=== PATIENT | male | born 1950 | race Native Hawaiian/Other Pacific Islander ===

== ENCOUNTER 2018-04-29 14:52 | Outpatient (CLI) | payer MEDICARE | END 2018-04-29 14:53 | disposition home or self-care (01) | LOC: C.RADIC 14:52 ==

== ENCOUNTER 2018-05-06 05:49 | Inpatient (IN) | payer MEDICARE ==
[2018-05-06] MEDS ORDERED: Tranexamic Acid 1,000 MG in Sodium Chloride 0.9% 50 ML IV ONE (07:30)
[2018-05-06] MEDS ORDERED: Bupivacaine Liposomal Inj 20 ml INFIL ONE (07:30)
[2018-05-06] MEDS ORDERED: Propofol 10 mg/ml Inj (20 ML) ONE (07:45)
[2018-05-06] MEDS ORDERED: Succinylcholine Chloride 20 mg/ml Syr (5 ml) IV ONE (07:57)
[2018-05-06] MEDS ORDERED: Phenylephrine 10 mg/ml Inj ONE (07:57)
[2018-05-06] MEDS ORDERED: Rocuronium 10 mg/ml (5 ml) ONE (07:57)
[2018-05-06] MEDS ORDERED: Sodium Chloride 0.9% 60 ML IV ONE (08:08)
[2018-05-06] MEDS ORDERED: ceFAZolin 1 gm in NS 2 GM/200 ML BAG IVPB ONE (08:08)
[2018-05-06] MEDS ORDERED: Bacitracin Ointment 30 GM TUBE ONE (08:11)
[2018-05-06] MEDS: Bacitracin 150,000 UNIT in Sodium Chloride 0.9% Irrig 3,000 ML IR SCH (08:37)
[2018-05-06] MEDS ORDERED: Neostigmine 1:1000 (1 mg/ml) Inj ONE (10:54)
[2018-05-06] MEDS ORDERED: Lactated Ringer's 1,000 ML IV ONE (11:25)
--- NOTE | 2018-05-06 11:36 | PCM.SURG1 ---
Surgeon's Initial Post Op Note - Surgeon's Notes Surgeon: Fer Austin MD Customer Service Voice: Liza Shell PA-C, CRNA Type of Anesthesia: General Endo Anesthesia Administered By: Dr. Fuentes Pre-Operative Diagnosis: Left knee DJD Operative Findings: extensive posterior capsular contracture. Tourniquet 89 min@350mmHg Post-Operative Diagnosis: same Operation Performed: 1. Left total knee replacement. 2. anterior and posterior synovectomy. 3. posterior capsular release. 4. arthrotomy excision of loose bodies. 5. computer navigation Specimen/Specimens Removed: bone. loose body Estimated Blood Loss: EBL {In ML}: 125 Blood Products Given: N/A Drains Used: Hemovac Post-Op Condition: Fair Date of Surgery/Procedure: 05/06/18 Time of Surgery/Procedure: 11:36
[2018-05-06] MEDS ORDERED: Bisacodyl 5mg EC Tab PO PRN (11:38)
[2018-05-06] MEDS: HYDROmorphone 0.5 mg/0.5 ml ISec IVP PRN ×4 (11:44→13:45)
[2018-05-06] MEDS ORDERED: Bupivacaine 0.25% 20 ML INJ IJ ONE (14:24)
[2018-05-06] MEDS ORDERED: Ropivacaine 0.5% PF (20 ml) inj INJ ONE (14:27)
--- NOTE | 2018-05-06 15:27 | RAD ---
Indication: PT IN PACU S/P tkr Comparison: None available Two views, left knee Findings: The patient is status post left knee total arthroplasty. Alignment appears satisfactory. Soft tissue swelling, drainage catheter, subcutaneous emphysema, and surgical yadiel compatible with recent postoperative history Impression: Status post left arthroplasty as above.
--- NOTE | 2018-05-06 15:33 | PCM.ANESB7 ---
Adductor Canal Block - Adductor Canal Block Date of Procedure: 05/06/18 Procedure Performed: Adductor Canal Block Left - Procedure Adductor Canal Block: The procedure was explained to the patient that it is for the post-operative pain management. Consent was obtained after a thorough discussion with the patient regarding the benefits and possible complications of local anesthetic adductor canal block of the femoral nerve. Standard monitors, as defined by the ASA, were applied to the patient. Time-out was held with the circulating nurse to confirm the appropriate block. After applying supplemental oxygen and administering IV Sedation as needed, the patient was placed in supine position with and the operative leg was flexed slightly at the knee and externally rotated as needed, and was kept anatomically stable. The mid-thigh of the _LEFT__ lower extremity was exposed. The ultrasound transducer was then applied transversely along the medial aspect, about midway down the thigh and the femoral artery and vein were identified in appropriate relation with the sartorius muscle. At this time, the femoral nerve was visualized lateral to the femoral artery within the canal. After thorough identification, this area area was prepped with Chloroprep solution three times and 1 % Lidocaine was injected subcutaneously for topical anesthesia. At this point, a #22 gauge Stimuplex 4-inch needle was inserted in-plane in a [id number] orientation, and advanced toward the saphenous nerve. Advancement was performed carefully under direct ultrasound visualization. After negative aspiration, ___5__cc of _0.5% _ropivicaine was injected and this was followed with 15cc of _0.5_ % ropivicaine. Under ultrasound guidance the local anesthetics were observed spreading around the saphenous nerve in adductor canal. The needle was removed intact and sterile dressing was applied. The patient had stable vital signs, was conscious and in no apparent distress. The patient tolerated the saphenous nerve block well with stable vital signs and was prepared for subsequent surgery
[2018-05-06] MEDS ORDERED: Sodium Chloride 0.9% 1,000 ML IV ONE (15:45)
[2018-05-06] MEDS ORDERED: ceFAZolin IV 2 gm in Dextrose 2 GM/50 ML BAG IVPB SCH (16:00)
[2018-05-06 16:03] VITALS: RESP 20
--- NOTE | 2018-05-06 16:26 | PCM.OP ---
Operative Report - Operative Report Date of Surgery/Procedure: 05/06/18 Time of Surgery/Procedure: 08:50 (time in room 0800/anaesthesia indcution time) Surgeon: Norman Electrical Discharge Machine Operator: LEANNA Neff/ 2nd assist RADHA Merrill Anesthesia/Sedation: ERA Fuentes Pre-Operative Diagnosis: Tricompartmental o/a L knee Post-Operative Diagnosis: [id number] O/QA L knee Indication for Surgery: Severe pain and restricted ROM L knee Operative Findings: tricomparment O/A L knee tricompartmental synovits posterior capsuylar contracture lateral patella contracture Procedure/Operation Description: Dictating right total knee replacement arthroplasty for Domingo Fitzgerald The above captioned individual has presented with pain and restricted range of motion of the right knee for several years. She has failed conservative management consisting of intra-articular injection activity modification and therapy. The patient is finally achieved medical clearance and presents at this point time for total knee replacement arthroplasty Pros cons risks and benefits of knee replacement have been discussed the possibility of mechanical failure infection and thromboembolic disease stiffness dislocation mechanical failure secondary or tertiary surgery were discussed in detail and up in obtaining the informed consent. Having obtained informed consent in the above fashion, after having identified side site and procedure in a critical pause/timeout after satisfactory induction of the anesthetic the patient identified as Domingo Hernandez the left lower extremity is prepped and free draped in the usual fashion for lower extremity surgery after sterilely prepping and draping the lower extremity is exsanguinated using a 6 inch Esmarch bandage the tourniquet which had been applied is inflated to 350 mmHg. Approach was made to the knee approximately 6 inches the skin incision was carried down through the skin subtendinous tissue the dissection is carried down to the level of the prepatellar bursa medial and lateral dissection is accomplished to the level of the vastus fascia. Medial arthrotomy was accomplished the patella was everted the knee is flexed dissection is carried around posterior medially of the direct head of the semimembranosus tendon. Anterior and posterior cruciate ligaments were excised the medial and lateral meniscectomies were accomplished is dislocated anteriorly and the initial osteotomy of the arthroplasty was accomplished on the tibial side with computer navigation commences at this point time with the orthoalign technology. The anterior tibial strut is affixed to the anterior aspect of the tibia the sensor is placed as is the accelerometer having been accomplished the offset is measured from the insertion of the anterior cruciate ligament posteriorly on the stylus. The accelerometer is registered the offset is registered the lateral malleolus is registered medial malleolus is registered. The tibial cut is set to 0 degrees varus valgus 3.5 degrees posterior slope. Accomplished the tibial cut is 10 mm millimeters the more prominent tibial condyle osteotomy was accomplished using the oscillating saw a portion of the iliotibial band is released great care was taken to protect all neurocirculatory structures. Is turned to the femur the guidepin is placed above the intercondylar notch. Again employed guide is placed to the distal aspect of the femur and the offset is again noted. The accelerometer and the sensor are placed. Offset is noted measured and recorded the device. This point time hip center is found and the varus valgus is set to 0 degrees distal femoral cut. The attitude of the distal femoral cut is 0.5 degrees of flexion. Wish to avoid notching the anterior aspect of the femur at this point anterior and posterior synovectomies were accomplished. Posterior capsular contracture is noted. Femoral cut is accomplished an anterior posterior sizing of the femoral component is accomplished. Having been accomplished the appropriate size distal block is affixed along the epicondylar axis point time anterior and posterior femoral osteotomies were accomplished great care was taken to protect the collateral ligaments. Recuts were accomplished as well. But accomplished a lamina order taker was placed found to be evidence of a strong posterior capsular contracture as well as a lateral patellar contracture. Posterior capsule was released lateral patellar retinaculum contractures release from inside out as well. She is turned to the patella notch osteophytes border osteophytes were debrided the femoral trial was placed the intercondylar notch was reamed. Additional bone was osteotomized. At this point time posterior capsule having been released lateral patellar retinaculum having been released the tibia is dislocated anteriorly and the proximal tibia was prepared guidance to rotation of the lateral aspect of the tibial condyle, mid malleolar axis, and the medial aspect of the tibial tuberosity. Proximal tibia was reamed and punched. Tibial component having been placed flexion extension gap was measured and found to except the appropriate tibial polyethylene. Fixation balance is excellent. Attention is turned to the patella Patella girth is measured noted. Osteophytes were debrided. He had patella osteotomy was accomplished with size patella was reamed the patella was affixed and no thumbs technique extension balance is noted in the patella balance was noted and found to be acceptable. This having been accomplished hemostasis control with the aquamantys. At thisPoint time the femur tibia and patellar having been prepared with a WaterPik the appropriate size femoral component, tibial component and patella components were cemented sequentially. Appropriate size tibial insert is impacted. The knee is reduced flexion extension is evaluated patella balance is evaluated flexion-extension balance is evaluated and found to be acceptable. The tourniquet is deflated. Hemostasis controlled and closure was in layers #2 FiberWire for the medial arthrotomy. Followed by 0 Vicryl 2-0 Vicryl and yadiel for skin A. [employer] Vo compression dressing is applied immobilizer. She is transferred from the operating table to stretcher having tolerated procedure well. This is the end of the operative note on Domingo Austin Estimated Blood Loss: 75 cc Blood Replaced: No blood replacement Sponge/Instrument Count: Sponge instrument count correct Drains: No drains Complications: No complications Specimen: Synovium cartilage bone Discharge & Condition: Patient is transferred from the operating room table to the stretcher having tolerated the procedure well
[2018-05-06] MEDS: SODIUM CHLORIDE 0.9% IVPB SCH (18:27)
[2018-05-06] MEDS: CEFAZOLIN IVPB SCH (18:27)
--- NOTE | 2018-05-06 21:59 | CP.PCM.PN ---
Subjective - Date & Time of Evaluation Date of Evaluation: 05/06/18 Time of Evaluation: 18:00 - Subjective Subjective: Patient has a left knee replacement today. Now, alert, oriented, in no respiratory distress. Objective - Vital Signs/Intake and Output Vital Signs (last 24 hours): Temp Pulse Resp BP Pulse Ox 96.0 F L 102 H 20 159/83 H 99 05/06/18 15:30 05/06/18 15:30 05/06/18 15:30 05/06/18 15:30 05/06/18 15:30 Intake and Output: 05/06/18 05/07/18 18:59 06:59 Intake Total 0 Output Total 150 Balance 2049 - Medications Medications: Current Medications Acetaminophen (Tylenol 325mg Tab) 650 mg PO Q6 PRN PRN Reason: FEVER 101 OR ABOVE Amlodipine Besylate (Norvasc) 10 mg PO DAILY [facility] Bisacodyl (Dulcolax) 10 mg PO HS PRN PRN Reason: Constipation Docusate Sodium (Colace) 100 mg PO BID [facility] Last Admin: 05/06/18 18:28 Dose: 100 mg Enoxaparin Sodium (Lovenox) 40 mg SC DAILY [facility] Hydromorphone HCl (Dilaudid) 0.5 mg IVP Q4H PRN PRN Reason: Pain, severe (8-10) Sodium Chloride (Sodium Chloride 0.9%) 1,000 mls @ 80 mls/hr IV .[id number] [facility] Stop: 05/07/18 12:44 Cefazolin Sodium 2 gm/ Sodium (Chloride) 200 mls @ 200 mls/hr IVPB Q8H [facility]; Protocol Stop: 05/07/18 03:29 Last Admin: 05/06/18 18:27 Dose: 200 mls/hr Levothyroxine Sodium (Synthroid) 75 mcg PO DAILY@0630 [facility] Losartan Potassium (Cozaar) 100 mg PO DAILY [facility] Multivitamins (Hexavitamin) 1 tab PO DAILY [facility] Ondansetron HCl (Zofran Inj) 4 mg IVP Q6H PRN PRN Reason: Nausea/Vomiting Tamsulosin HCl (Flomax) 0.4 mg PO DAILY [facility] - Constitutional Appears: Well, No Acute Distress - Head Exam Head Exam: NORMAL INSPECTION - Eye Exam Eye Exam: Normal appearance Pupil Exam: NORMAL ACCOMODATION - ENT Exam ENT Exam: Normal Exam - Neck Exam Neck Exam: Normal Inspection - Respiratory Exam Respiratory Exam: Clear to Ausculation Bilateral, NORMAL BREATHING PATTERN - Cardiovascular Exam Cardiovascular Exam: REGULAR RHYTHM - GI/Abdominal Exam GI & Abdominal Exam: Soft, Normal Bowel Sounds - Rectal Exam Rectal Exam: Deferred - Exam Exam: NORMAL INSPECTION - Extremities Exam Extremities Exam: Normal Inspection - Back Exam Back Exam: NORMAL INSPECTION - Neurological Exam Neurological Exam: Alert, Awake, Oriented x3 - Psychiatric Exam Psychiatric exam: Anxious - Skin Skin Exam: Dry, Normal Color, Warm Assessment and Plan (1) Osteoarthritis of left knee Assessment & Plan: S/p total left knee replacement today. Status: Acute (2) Hypertension Status: Acute
[2018-05-07] MEDS: HYDROmorphone 0.5 mg/0.5 ml ISec IVP PRN (00:12)
[2018-05-07] MEDS: CEFAZOLIN IVPB SCH (02:05)
[2018-05-07] MEDS: SODIUM CHLORIDE 0.9% IVPB SCH (02:05)
[2018-05-07] MEDS: Sodium Chloride 0.9% 1,000 ML IV SCH ×2 (05:39→19:53)
[2018-05-07] MEDS: Levothyroxine 75 MCG TAB PO SCH (05:40)
[2018-05-07 06:44] LABS: HEMOGLOBIN 13.7 g/dL (12.0-18.0); MEAN CELL VOLUME 89.8 fL (80.0-94.0); MEAN CORPUSCULAR HEMOGLOBIN 30.5 pg (27.0-31.0); MEAN PLATELET VOLUME 9.1 fL (7.2-11.7); RBC 4.5 Mil/uL (4.40-5.90); RED CELL DISTRIBUTION WIDTH 13.3 % (11.5-14.5); WHITE BLOOD COUNT 8.6 K/uL (4.8-10.8)
[2018-05-07 06:53] LABS: BLOOD UREA NITROGEN 19 mg/dL (9-20); GFR NON-AFRICAN AMERICAN > 60
[2018-05-07 06:54] LABS: CALCIUM 8.8 mg/dl (8.6-10.4)
--- NOTE | 2018-05-07 07:38 | CP.PCM.PN ---
Subjective - Date & Time of Evaluation Date of Evaluation: 05/07/18 Time of Evaluation: 07:38 - Subjective Subjective: Patient states he is having pain in his knee. He is urinating a little but says it is difficult and he feels like he has to go a lot. Denies CP/SOB/dizzinessn/v numbness/tingling. Objective - Vital Signs/Intake and Output Vital Signs (last 24 hours): Temp Pulse Resp BP Pulse Ox 98.3 F 92 H 20 162/85 H 94 L 05/07/18 04:00 05/07/18 04:00 05/07/18 04:00 05/07/18 04:00 05/07/18 04:00 Intake and Output: 05/07/18 05/07/18 06:59 18:59 Intake Total 1500 Output Total 725 Balance 775 - Medications Medications: Current Medications Acetaminophen (Tylenol 325mg Tab) 650 mg PO Q6 PRN PRN Reason: FEVER 101 OR ABOVE Amlodipine Besylate (Norvasc) 10 mg PO DAILY [facility] Bisacodyl (Dulcolax) 10 mg PO HS PRN PRN Reason: Constipation Docusate Sodium (Colace) 100 mg PO BID [facility] Last Admin: 05/06/18 18:28 Dose: 100 mg Enoxaparin Sodium (Lovenox) 40 mg SC DAILY [facility] Hydromorphone HCl (Dilaudid) 0.5 mg IVP Q4H PRN PRN Reason: Pain, severe (8-10) Last Admin: 05/07/18 00:12 Dose: 0.5 mg Sodium Chloride (Sodium Chloride 0.9%) 1,000 mls @ 80 mls/hr IV .[id number] [facility] Stop: 05/07/18 12:44 Last Admin: 05/07/18 05:39 Dose: 80 mls/hr Levothyroxine Sodium (Synthroid) 75 mcg PO DAILY@0630 [facility] Last Admin: 05/07/18 05:40 Dose: 75 mcg Losartan Potassium (Cozaar) 100 mg PO DAILY [facility] Multivitamins (Hexavitamin) 1 tab PO DAILY [facility] Ondansetron HCl (Zofran Inj) 4 mg IVP Q6H PRN PRN Reason: Nausea/Vomiting Tamsulosin HCl (Flomax) 0.4 mg PO DAILY [facility] - Labs Labs: 05/07/18 06:32 05/07/18 06:32 - Extremities Exam Additional comments: +ROM ankle/toes, sensation intact, +Dp/PT pulses knee immob intact calves soft NT neg homans hemovac 125 overnight Assessment and Plan (1) Osteoarthritis of left knee Assessment & Plan: POD#1 s/p TKR PT/OT VTE proph will plan bladder scan if freq continues d/c planning add toradol d/w Dr. Austin, agrees with above Status: Acute
[2018-05-07] MEDS: Multiple Vitamins Tab PO SCH (10:12)
[2018-05-07] MEDS: Enoxaparin 40 mg Syringe SC SCH (10:15)
--- NOTE | 2018-05-07 18:51 | CP.PCM.PN ---
Subjective - Date & Time of Evaluation Date of Evaluation: 05/07/18 Time of Evaluation: 18:48 - Subjective Subjective: Patient complaining of pain of the left knee. Afebrile. Objective - Vital Signs/Intake and Output Vital Signs (last 24 hours): Temp Pulse Resp BP Pulse Ox 98.2 F 85 20 132/77 96 05/07/18 15:15 05/07/18 15:15 05/07/18 15:15 05/07/18 15:15 05/07/18 15:15 Intake and Output: 05/07/18 05/07/18 06:59 18:59 Intake Total 1500 800 Output Total 725 690 Balance 775 110 - Medications Medications: Current Medications Acetaminophen (Tylenol 325mg Tab) 650 mg PO Q6 PRN PRN Reason: FEVER 101 OR ABOVE Amlodipine Besylate (Norvasc) 10 mg PO DAILY [facility] Last Admin: 05/07/18 10:12 Dose: 10 mg Bisacodyl (Dulcolax) 10 mg AR DAILY [facility] Docusate Sodium (Colace) 100 mg PO BID [facility] Last Admin: 05/07/18 10:12 Dose: 100 mg Enoxaparin Sodium (Lovenox) 40 mg SC DAILY [facility] Last Admin: 05/07/18 10:15 Dose: 40 mg Hydromorphone HCl (Dilaudid) 0.5 mg IVP Q4H PRN PRN Reason: Pain, severe (8-10) Last Admin: 05/07/18 00:12 Dose: 0.5 mg Ketorolac Tromethamine (Toradol) 30 mg IVP Q6H [facility] Stop: 05/08/18 07:46 Last Admin: 05/07/18 16:23 Dose: 30 mg Levothyroxine Sodium (Synthroid) 75 mcg PO DAILY@0630 [facility] Last Admin: 05/07/18 05:40 Dose: 75 mcg Losartan Potassium (Cozaar) 100 mg PO DAILY [facility] Last Admin: 05/07/18 10:12 Dose: 100 mg Multivitamins (Hexavitamin) 1 tab PO DAILY [facility] Last Admin: 05/07/18 10:12 Dose: 1 tab Ondansetron HCl (Zofran Inj) 4 mg IVP Q6H PRN PRN Reason: Nausea/Vomiting Tamsulosin HCl (Flomax) 0.4 mg PO DAILY [facility] Last Admin: 05/07/18 13:43 Dose: 0.4 mg - Labs Labs: 05/07/18 06:32 05/07/18 06:32 - Constitutional Appears: Well, No Acute Distress - Head Exam Head Exam: NORMOCEPHALIC - Eye Exam Eye Exam: Normal appearance Pupil Exam: NORMAL ACCOMODATION - ENT Exam ENT Exam: Normal Exam - Neck Exam Neck Exam: Normal Inspection - Respiratory Exam Respiratory Exam: Clear to Ausculation Bilateral, NORMAL BREATHING PATTERN - Cardiovascular Exam Cardiovascular Exam: REGULAR RHYTHM - GI/Abdominal Exam GI & Abdominal Exam: Soft, Normal Bowel Sounds - Rectal Exam Rectal Exam: Deferred - Exam Exam: NORMAL INSPECTION - Extremities Exam Additional comments: Left knee under bandages. - Back Exam Back Exam: NORMAL INSPECTION - Neurological Exam Neurological Exam: Alert, Awake, Oriented x3 - Psychiatric Exam Psychiatric exam: Anxious - Skin Skin Exam: Dry, Normal Color, Warm Assessment and Plan (1) Osteoarthritis of left knee Assessment & Plan: S/p total left knee replacement POD # 1. Status: Acute (2) Hypertension Status: Acute
[2018-05-08] MEDS: Levothyroxine 75 MCG TAB PO SCH (06:10)
[2018-05-08 06:51] LABS: HEMOGLOBIN 11.5 g/dL (12.0-18.0); MEAN CELL VOLUME 90.5 fL (80.0-94.0); MEAN CORPUSCULAR HEMOGLOBIN 30.2 pg (27.0-31.0); MEAN CORPUSCULAR HGB CONC 33.3 g/dL (33.0-37.0); MEAN PLATELET VOLUME 9.6 fL (7.2-11.7); RBC 3.82 Mil/uL (4.40-5.90); RED CELL DISTRIBUTION WIDTH 13.4 % (11.5-14.5); WHITE BLOOD COUNT 8.5 K/uL (4.8-10.8)
[2018-05-08 07:41] LABS: BLOOD UREA NITROGEN 26 mg/dL (9-20); CALCIUM 8.3 mg/dl (8.6-10.4); GFR NON-AFRICAN AMERICAN > 60
[2018-05-08] MEDS: Multiple Vitamins Tab PO SCH (10:09)
[2018-05-08] MEDS: Enoxaparin 40 mg Syringe SC SCH (10:09)
--- NOTE | 2018-05-08 13:06 | CP.PCM.PN ---
Subjective - Date & Time of Evaluation Date of Evaluation: 05/08/18 Time of Evaluation: 08:00 - Subjective Subjective: Patient states that pain is much better today. He was able to walk a lot with PT yesterday, was reminded as he was walking too fast. Denies CP/SOB/dizziness/numbness/tingling. Objective - Vital Signs/Intake and Output Vital Signs (last 24 hours): Temp Pulse Resp BP Pulse Ox 98.1 F 83 20 167/92 H 96 05/08/18 08:00 05/08/18 08:00 05/08/18 08:00 05/08/18 08:00 05/08/18 08:00 Intake and Output: 05/08/18 05/08/18 06:59 18:59 Intake Total 1880 Output Total 465 Balance 1415 - Medications Medications: Current Medications Acetaminophen (Tylenol 325mg Tab) 650 mg PO Q6 PRN PRN Reason: FEVER 101 OR ABOVE Amlodipine Besylate (Norvasc) 10 mg PO DAILY [facility] Last Admin: 05/08/18 10:08 Dose: 10 mg Bisacodyl (Dulcolax) 10 mg NM DAILY [facility] Last Admin: 05/08/18 10:09 Dose: Not Given Docusate Sodium (Colace) 100 mg PO BID [facility] Last Admin: 05/08/18 10:09 Dose: 100 mg Enoxaparin Sodium (Lovenox) 40 mg SC DAILY [facility] Last Admin: 05/08/18 10:09 Dose: 40 mg Hydromorphone HCl (Dilaudid) 0.5 mg IVP Q4H PRN PRN Reason: Pain, severe (8-10) Last Admin: 05/07/18 00:12 Dose: 0.5 mg Levothyroxine Sodium (Synthroid) 75 mcg PO DAILY@0630 [facility] Last Admin: 05/08/18 06:10 Dose: 75 mcg Losartan Potassium (Cozaar) 100 mg PO DAILY [facility] Last Admin: 05/08/18 10:08 Dose: 100 mg Multivitamins (Hexavitamin) 1 tab PO DAILY [facility] Last Admin: 05/08/18 10:09 Dose: 1 tab Ondansetron HCl (Zofran Inj) 4 mg IVP Q6H PRN PRN Reason: Nausea/Vomiting Tamsulosin HCl (Flomax) 0.4 mg PO DAILY [facility] Last Admin: 05/08/18 10:12 Dose: 0.4 mg - Labs Labs: 05/08/18 06:34 05/08/18 06:34 - Extremities Exam Additional comments: LLE: hemovac pulled. Dressing changed. Incision intact, mild swelling as expected. Dry no erythema +ROM ankle/toes, sensation intact +DP/PT pulses calves soft NT neg homans Assessment and Plan (1) Osteoarthritis of left knee Assessment & Plan: POD#2 s/p left TKR awaiting auth for TCU transfer ortho stable for transfer Cont PT/OT VTE proph d/c planning dw/ Dr. Austin, agrees with above Status: Acute
[2018-05-08 16:29] VITALS: BP 145/86; PULSE 91; TEMP 98.4; O2SAT 97
[2018-05-08] MEDS: HYDROmorphone 0.5 mg/0.5 ml ISec IVP PRN (16:54)
== END 2018-05-08 19:45 | DRG 470 ==
LOC: C.9S 05:49 → C.6T 15:49
PROVIDERS: ADMIT Internal Medicine Cardiovascular Disease; ATTEND Internal Medicine Cardiovascular Disease
PROC: 0SND0ZZ Release Left Knee Joint, Open Approach (ICD-10-PCS; 2018-05-06)
PROC: 0SCD0ZZ Extirpation of Matter from Left Knee Joint, Open Approach (ICD-10-PCS; 2018-05-06)
PROC: 0SBD0ZZ Excision of Left Knee Joint, Open Approach (ICD-10-PCS; 2018-05-06)
PROC: 3E0T3BZ Introduction of Anesthetic Agent into Peripheral Nerves and Plexi, Percutaneous Approach (ICD-10-PCS; 2018-05-06)
PROC: 0SRD0J9 Replacement of Left Knee Joint with Synthetic Substitute, Cemented, Open Approach (ICD-10-PCS; principal; 2018-05-06 07:45)
DX: M17.12 Unilateral primary osteoarthritis, left knee (principal); M24.562 Contracture, left knee; M23.42 Loose body in knee, left knee; M65.862 Other synovitis and tenosynovitis, left lower leg; M25.462 Effusion, left knee; M25.562 Pain in left knee; I10 Essential (primary) hypertension; E03.9 Hypothyroidism, unspecified; J45.909 Unspecified asthma, uncomplicated; N40.0 Benign prostatic hyperplasia without lower urinary tract symptoms; E78.00 Pure hypercholesterolemia, unspecified; Z87.891 Personal history of nicotine dependence; Z98.41 Cataract extraction status, right eye

== ENCOUNTER 2018-05-30 14:36 | Emergency (ER) | payer MEDICARE ==
[2018-05-30 14:36] VITALS: BMI 31.6
[2018-05-30 14:50] VITALS: RESP 20; TEMP 98.3; O2SAT 97
[2018-05-30 16:04] LABS: URINE BILIRUBIN NEGATIVE (NEGATIVE); URINE BLOOD 1+ (NEGATIVE); URINE CLARITY Clear (Clear); URINE COLOR Yellow (YELLOW); URINE GLUCOSE (UA) NORMAL (Normal); URINE LEUKOCYTE ESTERASE NEG Leu/uL (Negative); URINE PROTEIN NEGATIVE (NEGATIVE); URINE UROBILINOGEN NORMAL mg/dL (0.2-1.0)
--- NOTE | 2018-05-30 17:47 | C.PDOC ---
History Of Present Illness 68 year old male presents to the ED for evaluation of urinary "dribbling" and difficulty urinating. Patient states he has not been able to urinate in the past several hours. Patient recently underwent a knee replacement surgery. He denies fever, chills, nausea, vomiting. Time Seen by Provider: 05/30/18 15:20 Chief Complaint (Nursing): Male Genitourinary History Per: Patient History/Exam Limitations: no limitations Onset/Duration Of Symptoms: Hrs, Persistent Current Symptoms Are (Timing): Still Present Quality Of Discomfort: Unable To Describe Associated Symptoms: Urinary Symptoms. denies: Fever, Chills, Nausea, Vomiting Recent travel outside of the [place]: No Past Medical History Reviewed: Historical Data, Nursing Documentation, Vital Signs Vital Signs: Last Vital Signs Temp 98.3 F 05/30/18 14:47 Pulse 87 05/30/18 14:47 Resp 20 05/30/18 14:47 BP 145/70 05/30/18 14:47 Pulse Ox 97 05/30/18 14:47 - Medical History PMH: Arthritis, HTN Denies: HIV, Chronic Kidney Disease Surgical History: No Surg Hx - [facility] Procedures EXCISION OF LEFT KNEE JOINT, OPEN APPROACH (05/06/18) EXTIRPATION OF MATTER FROM LEFT KNEE JOINT, OPEN APPROACH (05/06/18) INTRODUCE LOCAL ANESTH IN PERIPH NRV, PLEXI, PERC (05/06/18) RELEASE LEFT KNEE JOINT, OPEN APPROACH (05/06/18) REPLACE OF L KNEE JT WITH SYNTH SUB, CEMENT, OPEN APPROACH (05/06/18) Family History: States: Unknown Family Hx - Social History Hx Alcohol Use: No Hx Substance Use: No Review Of Systems Constitutional: Negative for: Fever, Chills Eyes: Negative for: Pain ENT: Negative for: Ear Pain Cardiovascular: Negative for: Chest Pain Respiratory: Negative for: Cough, Shortness of Breath Gastrointestinal: Negative for: Nausea, Vomiting, Abdominal Pain Genitourinary: Positive for: Other (urinary dribbling and retention ). Negative for: Dysuria, Frequency Physical Exam - Physical Exam Appears: Non-toxic, No Acute Distress Skin: Normal Color, Warm, Dry, Other (healing wound to left knee. no signs of cellulitis ) Head: Atraumatic, Normacephalic Eye(s): bilateral: Normal Inspection Oral Mucosa: Moist Neck: Supple Chest: Symmetrical, No Deformity, No Tenderness Cardiovascular: Rhythm Regular, No Murmur Respiratory: Normal Breath Sounds, No Rales, No Rhonchi, No Wheezing Gastrointestinal/Abdominal: Soft, No Tenderness, No Guarding, No Rebound Extremity: Normal ROM, Capillary Refill (less than 2 seconds ) Neurological/Psych: Oriented x3, Normal Speech, Normal Cognition ED Course And Treatment - Laboratory Results Lab Results: Urine Color Yellow (YELLOW) 05/30/18 15:56 Urine Clarity Clear (Clear) 05/30/18 15:56 Urine pH 5.0 (5.0-8.0) 05/30/18 15:56 Ur Specific [place] 1.018 (1.003-1.030) 05/30/18 15:56 Urine Protein Negative mg/dL (NEGATIVE) 05/30/18 15:56 Urine Glucose (UA) Normal mg/dL (Normal) 05/30/18 15:56 Urine Ketones Negative mg/dL (NEGATIVE) 05/30/18 15:56 Urine Blood 1+ (NEGATIVE) H 05/30/18 15:56 Urine Nitrate Negative (NEGATIVE) 05/30/18 15:56 Urine Bilirubin Negative (NEGATIVE) 05/30/18 15:56 Urine Urobilinogen Normal mg/dL (0.2-1.0) 05/30/18 15:56 Ur Leukocyte Esterase Neg Natalio/uL (Negative) 05/30/18 15:56 Urine WBC (Auto) 1 /hpf (0-5) 05/30/18 15:56 Urine RBC (Auto) 21 /hpf (0-3) H 05/30/18 15:56 O2 Sat by Pulse Oximetry: 97 (on RA) Pulse Ox Interpretation: Normal Medical Decision Making Medical Decision Making: Urinalysis ordered and reviewed. Ciproflaxin PO given. The case was discussed with Urologist (Dr. Waddell) who states to place a fregoso and letg bag for the patient and he will follow up with the patient in the office. On re-exam, the patient reports improvement of symptoms. Lungs are CTA, heart is RRR, abdomen is soft, non-tender and tolerating Po well. Follow up with the medical doctor within 1-2 days. Return if worsened. Disposition - Disposition Referrals: Korey Waddell MD [Staff Provider] - Disposition: HOME/ ROUTINE Disposition Time: 17:44 Condition: GOOD Additional Instructions: Follow up with the medical doctor within 1-2 days. Return if worsened. Instructions: Urinary Retention (DC) Forms: [facility] ([place]) - Clinical Impression Clinical Impression: Urinary retention - PA / TANKROOM TENDER / Resident Statement MD/DO has reviewed & agrees with the documentation as recorded. - Scribe Statement The provider has reviewed the documentation as recorded by the Scribe (Erica Thornton) All medical record entries made by the Scribe were at my direction and personally dictated by me. I have reviewed the chart and agree that the record accurately reflects my personal performance of the history, physical exam, medical decision making, and the department course for this patient. I have also personally directed, reviewed, and agree with the discharge instructions and disposition.
[2018-05-30 17:55] VITALS: BP 155/80; PULSE 85
== END 2018-05-30 18:06 | disposition home or self-care (01) ==
LOC: C.ER 14:36
DX: R33.9 Retention of urine, unspecified (principal)

== ENCOUNTER 2018-06-07 10:37 | Outpatient (CLI) | payer MEDICARE | END 2018-06-07 10:38 | disposition home or self-care (01) | LOC: C.PAT 10:37 | DX: R33.9 Retention of urine, unspecified (principal); N40.1 Benign prostatic hyperplasia with lower urinary tract symptoms ==

== ENCOUNTER 2018-07-22 05:59 | Inpatient (IN) | payer MEDICARE ==
[2018-07-17 08:30] VITALS: BMI 29.7
[2018-07-22] MEDS ORDERED: cefTRIAXone 1 gm 1 GM/100 ML BAG IVPB ONE (07:21)
[2018-07-22] MEDS ORDERED: Iohexol 240 (50 ml) ONE (07:21)
[2018-07-22] MEDS ORDERED: Lidocaine 2% Jelly (Uro-Jet) ONE (07:22)
[2018-07-22] MEDS ORDERED: Propofol 10 mg/ml Inj (20 ML) ONE (07:38)
--- NOTE | 2018-07-22 09:11 | PCM.SURG1 ---
Surgeon's Initial Post Op Note - Surgeon's Notes Surgeon: Lynette Valadez Hand Hide Stretcher: none Type of Anesthesia: General LMA Pre-Operative Diagnosis: BPH Operative Findings: same Post-Operative Diagnosis: same Operation Performed: cysto. TURP Specimen/Specimens Removed: urine, prostate Estimated Blood Loss: EBL {In ML}: 60 Blood Products Given: N/A Post-Op Condition: Good Date of Surgery/Procedure: 07/22/18 Time of Surgery/Procedure: 08:40
[2018-07-22] MEDS ORDERED: Lactated Ringer's 500 ML IV ONE (09:36)
[2018-07-22 13:53] VITALS: RESP 20
[2018-07-22] MEDS: Lactated Ringer's 1,000 ML IV SCH (18:33)
[2018-07-22] MEDS ORDERED: Oxycodone/Acetaminophen 5/325 mg Tab PO PRN (18:44)
--- NOTE | 2018-07-22 23:10 | CP.PCM.PN ---
Subjective - Date & Time of Evaluation Date of Evaluation: 07/22/18 Time of Evaluation: 19:00 - Subjective Subjective: 68 years old male, known to have a hypertension, a hypothyroidism, an osteoarthritis of the left knee, a gout, a bronchial asthma, a BPH underwent a a TURP this AM . He is former cigarette smoker, and drinks 5 beers on week-end. His medications include Losartan 100 mg PO qd, Levothyroxine 75 mcgPO qd, Tamsulosin 0.4 mg PO qd, Amlodipine 10 mg PO qd, Allopurinol 100 mg PO qd, Famotidine 40 mg PO qd, Advair Diskus. He has no complaint now. Objective - Vital Signs/Intake and Output Vital Signs (last 24 hours): Temp Pulse Resp BP Pulse Ox 97.9 F 82 20 126/63 96 07/22/18 16:14 07/22/18 16:14 07/22/18 16:14 07/22/18 16:14 07/22/18 16:14 Intake and Output: 07/22/18 07/23/18 18:59 06:59 Intake Total 1050 6350 Output Total 400 06279 Balance 650 -6850 - Medications Medications: Current Medications Amlodipine Besylate (Norvasc) 10 mg PO DAILY [facility] Docusate Sodium (Colace) 100 mg PO TID [facility] Last Admin: 07/22/18 18:37 Dose: 100 mg Finasteride (Proscar) 5 mg PO DAILY [facility] Lactated Ringer's (Lactated Ringer's) 1,000 mls @ 100 mls/hr IV .Q10H [facility] Last Admin: 07/22/18 18:33 Dose: Not Given Ceftriaxone Sodium 1 gm/ (Sodium Chloride) 100 mls @ 100 mls/hr IVPB ONCE ONE; Protocol Stop: 07/23/18 08:59 Lactulose (Enulose) 20 gm PO DAILY PRN PRN Reason: Constipation Levothyroxine Sodium (Synthroid) 75 mcg PO DAILY@0630 [facility] Losartan Potassium (Cozaar) 100 mg PO DAILY [facility] Morphine Sulfate (Morphine) 2 mg IVP Q4 PRN PRN Reason: Pain, severe (8-10) Last Admin: 07/22/18 22:03 Dose: 2 mg Multivitamins/Minerals (Therapeutic-M Tab) 1 tab PO DAILY [facility] Oxycodone/Acetaminophen (Percocet 5/325 Mg Tab) 1 tab PO Q4H PRN PRN Reason: Pain, moderate (4-7) Stop: 07/25/18 18:45 Tamsulosin HCl (Flomax) 0.4 mg PO DAILY [facility] - Constitutional Appears: Well, No Acute Distress - Head Exam Head Exam: NORMAL INSPECTION - Eye Exam Eye Exam: Normal appearance Pupil Exam: NORMAL ACCOMODATION - ENT Exam ENT Exam: Normal Exam - Neck Exam Neck Exam: Normal Inspection - Respiratory Exam Respiratory Exam: Clear to Ausculation Bilateral, NORMAL BREATHING PATTERN - Cardiovascular Exam Cardiovascular Exam: REGULAR RHYTHM - GI/Abdominal Exam GI & Abdominal Exam: Soft, Normal Bowel Sounds - Rectal Exam Rectal Exam: Deferred - Extremities Exam Extremities Exam: Normal Inspection Additional comments: Surgical scar at the left knee healing well. - Back Exam Back Exam: NORMAL INSPECTION - Neurological Exam Neurological Exam: Alert, Awake, Oriented x3 - Psychiatric Exam Psychiatric exam: Anxious - Skin Skin Exam: Dry, Intact, Normal Color, Warm Assessment and Plan (1) BPH (benign prostatic hyperplasia) Assessment & Plan: s/p TURP POD # 1. Status: Chronic (2) Status post total left knee replacement Status: Chronic (3) Hypertension Status: Chronic (4) Hypothyroid Assessment & Plan: To continue Levothyroxine. Status: Chronic
[2018-07-23] MEDS: Lactated Ringer's 1,000 ML IV SCH ×2 (01:00→04:45)
[2018-07-23] MEDS ORDERED: Levothyroxine 75 MCG TAB PO SCH (06:30)
[2018-07-23 06:39] LABS: HEMOGLOBIN 13.1 g/dL (12.0-18.0); MEAN CELL VOLUME 88.3 fL (80.0-94.0); MEAN CORPUSCULAR HEMOGLOBIN 28.9 pg (27.0-31.0); MEAN CORPUSCULAR HGB CONC 32.8 g/dL (33.0-37.0); MEAN PLATELET VOLUME 9.6 fL (7.2-11.7); RBC 4.54 Mil/uL (4.40-5.90); RED CELL DISTRIBUTION WIDTH 13.3 % (11.5-14.5); WHITE BLOOD COUNT 8.6 K/uL (4.8-10.8)
[2018-07-23 07:07] LABS: BLOOD UREA NITROGEN 15 mg/dL (9-20); CALCIUM 9.5 mg/dl (8.6-10.4); GFR NON-AFRICAN AMERICAN > 60
--- NOTE | 2018-07-23 07:17 | OP ---
PROCEDURE DATE: 07/22/2018 PREOPERATIVE DIAGNOSIS: Benign prostatic hypertrophy with obstruction. POSTOPERATIVE DIAGNOSIS: Benign prostatic hypertrophy with obstruction. PROCEDURES: Cystoscopy. Transurethral resection of prostate. OPERATING SURGEON: Melva Valadez MD DESCRIPTION OF PROCEDURE: As follows. The patient was placed in lithotomy position. The patient received perioperative antibiotics. Anesthesia was applied by the anesthesiologist. A 26-[place]omin[place] continuous flow resectoscope sheath was introduced under direct vision. Procedure was performed under video endoscopic control. The urethra, prostate, and bladder were inspected. FINDINGS: There was no stricture of the anterior urethra. There was mild narrowing at the urethral meatus. The prostatic urethra was occlusive secondary to trilobar prostatic hypertrophy with an intravesical intrusion of the middle lobe. There was marked bladder trabeculation. There was no bladder tumor. There was no bladder stone. The resectoscope was inserted. The obstructing prostatic adenomatous tissue was resected. The middle lobe was resected on the floor. Thereafter, the anterior roof tissue within the prostatic urethra was resected. Subsequently, the right lobe and then the left lobe were resected. Finally, the floor and apical prostatic tissue were resected. Hemostasis was achieved after resection. The prostatic chips were removed using the Microvasive evacuator. The resectoscope was inserted. There was no active bleeding. There were no residual chips The resectoscope was removed. Umanzor catheter was inserted. Bladder drainage was clear. The patient tolerated the procedure without complication. The patient was returned to supine position. The patient was transferred to recovery room in satisfactory condition. Melva Valadez MD cc: Dr. Rivera
[2018-07-23 07:59] VITALS: BP 155/72; PULSE 76; TEMP 97.4; O2SAT 96
[2018-07-23] MEDS ORDERED: Multivitamin With Minerals Tab PO SCH (10:00)
--- NOTE | 2018-07-23 10:26 | CP.PCM.PN ---
Subjective - Date & Time of Evaluation Date of Evaluation: 07/23/18 Time of Evaluation: 10:23 - Subjective Subjective: Patient has no complaint. VSS. Afebrile . Umanzor catheter draining clear urine. Objective - Vital Signs/Intake and Output Vital Signs (last 24 hours): Temp Pulse Resp BP Pulse Ox 97.4 F L 76 20 155/72 H 96 07/23/18 07:58 07/23/18 07:58 07/23/18 07:58 07/23/18 07:58 07/23/18 07:58 Intake and Output: 07/23/18 07/23/18 06:59 18:59 Intake Total 6350 30089 Output Total 49164 08715 Balance -6490 -0016 - Medications Medications: Current Medications Amlodipine Besylate (Norvasc) 10 mg PO DAILY [facility] Docusate Sodium (Colace) 100 mg PO TID [facility] Last Admin: 07/22/18 18:37 Dose: 100 mg Finasteride (Proscar) 5 mg PO DAILY [facility] Lactulose (Enulose) 20 gm PO DAILY PRN PRN Reason: Constipation Levothyroxine Sodium (Synthroid) 75 mcg PO DAILY@0630 [facility] Last Admin: 07/23/18 05:30 Dose: 75 mcg Losartan Potassium (Cozaar) 100 mg PO DAILY [facility] Morphine Sulfate (Morphine) 2 mg IVP Q4 PRN PRN Reason: Pain, severe (8-10) Last Admin: 07/23/18 05:30 Dose: 2 mg Multivitamins/Minerals (Therapeutic-M Tab) 1 tab PO DAILY [facility] Oxycodone/Acetaminophen (Percocet 5/325 Mg Tab) 1 tab PO Q4H PRN PRN Reason: Pain, moderate (4-7) Stop: 07/25/18 18:45 Tamsulosin HCl (Flomax) 0.4 mg PO DAILY [facility] - Labs Labs: 07/23/18 06:17 07/23/18 06:17 - Constitutional Appears: Well, No Acute Distress - Head Exam Head Exam: NORMAL INSPECTION - Eye Exam Eye Exam: Normal appearance Pupil Exam: NORMAL ACCOMODATION - ENT Exam ENT Exam: Normal Exam - Neck Exam Neck Exam: Normal Inspection - Respiratory Exam Respiratory Exam: Clear to Ausculation Bilateral, NORMAL BREATHING PATTERN - Cardiovascular Exam Cardiovascular Exam: REGULAR RHYTHM - GI/Abdominal Exam GI & Abdominal Exam: Soft, Normal Bowel Sounds - Rectal Exam Rectal Exam: Deferred - Exam Exam: NORMAL INSPECTION - Extremities Exam Extremities Exam: Pedal Edema Additional comments: Trace edema of the left ankle. - Back Exam Back Exam: NORMAL INSPECTION - Neurological Exam Neurological Exam: Alert, Awake, Oriented x3 - Psychiatric Exam Psychiatric exam: Anxious - Skin Skin Exam: Dry, Intact, Normal Color, Warm Assessment and Plan (1) BPH (benign prostatic hyperplasia) Assessment & Plan: S/p TURP POD#1 Status: Chronic (2) Status post total left knee replacement Status: Chronic (3) Hypertension Assessment & Plan: BP controlled. Status: Chronic (4) Hypothyroid Status: Chronic
== END 2018-07-23 15:24 | disposition home or self-care (01) | DRG 714 ==
LOC: C.SDS 05:59 → C.9S 09:08 → C.3T 12:03
PROVIDERS: ADMIT Internal Medicine Cardiovascular Disease; ATTEND Internal Medicine Cardiovascular Disease
PROC: 0VT08ZZ Resection of Prostate, Via Natural or Artificial Opening Endoscopic (ICD-10-PCS; principal; 2018-07-22 07:30)
DX: N40.1 Benign prostatic hyperplasia with lower urinary tract symptoms (principal); R33.9 Retention of urine, unspecified; R33.8 Other retention of urine; N32.89 Other specified disorders of bladder; I10 Essential (primary) hypertension; E03.9 Hypothyroidism, unspecified; M17.12 Unilateral primary osteoarthritis, left knee; M10.9 Gout, unspecified; J45.909 Unspecified asthma, uncomplicated; Z87.891 Personal history of nicotine dependence; Z96.652 Presence of left artificial knee joint